=== PATIENT | male | born 1995 | race African-American/Black ===

== ENCOUNTER 2017-02-22 13:22 | Emergency (ER) | payer SELFPAY ==
[~2017-02-22] VITALS: Ht 167.6 cm; Wt 73.5 kg
[~2017-02-22 13:22] MED LIST: PANT40TA3 PO; PROM25TA10 PO
[2017-02-22 13:29] VITALS: BP 140/66
[2017-02-22] MEDS ORDERED: ACET-704 PO (14:10)
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
== END 2017-02-22 14:27 | disposition home or self-care (01) ==
LOC: ER 13:22
DX: S00.93XA Contusion of unspecified part of head, initial encounter (principal); J45.909 Unspecified asthma, uncomplicated; F17.210 Nicotine dependence, cigarettes, uncomplicated; V49.59XA Passenger injured in collision with other motor vehicles in traffic accident, initial encounter; Y93.89 Activity, other specified; Y99.8 Other external cause status; Y92.488 Other paved roadways as the place of occurrence of the external cause
CPT/HCPCS: 99283

== ENCOUNTER 2021-08-17 23:10 | Emergency (ER) | payer SELFPAY ==
[~2021-08-17] VITALS: Ht 172.7 cm; Wt 68.0 kg
[~2021-08-17 23:10] MED LIST changes: +ACET-704 PO; -PANT40TA3 PO; +PANT40TA77 PO
[2021-08-18 03:03] VITALS: BP 128/63
--- NOTE | 2021-08-18 03:53 | PHYS DOC ---
Past Medical History Past Medical History: Asthma, Other Additional Past Medical Histor: "smaller than average heart" Past Surgical History: Other Additional Past Surgical Histo: scrotum Smoking Status: Current Some Day Smoker Alcohol Use: None Drug Use: None General Adult EDM: Chief Complaint: ABDOMINAL PAIN HPI: HPI: Patient is a 26 year old male who present to ER for evaluation of abdominal pain. Patient stated that he had this abdominal pain for a long time. Patient denies any nausea vomiting, no cough, no fever. Patient was to have a doctor documentation that he is disabled because of the chronic abdominal pain. Patient also want to have a prescription for medical marijuana. Patient said he used marijuana every day. Patient denies any cough or fever, no diarrhea. Review of Systems: Review of Systems: Constitutional: Denies fever or chills. [] Eyes: Denies change in visual acuity. [] HENT: Denies nasal congestion or sore throat. [] Respiratory: Denies cough or shortness of breath. [] Cardiovascular: Denies chest pain or edema. [] GI: positive for abdominal pain, no nausea, vomiting, bloody stools or di arrhea. [] : Denies dysuria. [] Musculoskeletal: Denies back pain or joint pain. [] Integument: Denies rash. [] Neurologic: Denies headache, focal weakness or sensory changes. [] Endocrine: Denies polyuria or polydipsia. [] Lymphatic: Denies swollen glands. [] Psychiatric: Denies depression or anxiety. [] Heart Score: C/O Chest Pain: N/A Risk Factors: Risk Factors: DM, Current or recent (<one month) smoker, HTN, HLP, family history of CAD, obesity. Risk Scores: Score 0 - 3: 2.5% MACE over next 6 weeks - Discharge Home Score 4 - 6: 20.3% MACE over next 6 weeks - Admit for Clinical Observation Score 7 - 10: 72.7% MACE over next 6 weeks - Early Invasive Strategies Allergies: Allergies: Allergies Coded Allergies Type Severity Reaction Last Updated Verified No Known Drug Allergies 08/31/15 No Physical Exam: PE: Constitutional: Well developed, well nourished, no acute distress, non-toxic appearance. [] HENT: Normocephalic, atraumatic, bilateral external ears normal, oropharynx moist, no oral exudates, nose normal. [] Eyes: PERRLA, EOMI, conjunctiva normal, no discharge. [] Neck: Normal range of motion, no tenderness, supple, no stridor. [] Cardiovascular:Heart rate regular rhythm, no murmur [] Lungs & Thorax: Bilateral breath sounds clear to auscultation [] Abdomen: Bowel sounds normal, soft, no tenderness, no masses, no pulsatile masses. [] Skin: Warm, dry, no erythema, no rash. [] Back: No tenderness, no CVA tenderness. [] Extremities: No tenderness, no cyanosis, no clubbing, ROM intact, no edema. [] Neurologic: Alert and oriented X 3, normal motor function, normal sensory function, no focal deficits noted. [] Psychologic: Affect normal, judgement normal, mood normal. [] Current Patient Data: Vital Signs: Vital Signs Date Time Temp Pulse Resp B/P (MAP) Pulse Ox O2 Delivery O2 Flow Rate FiO2 08/18/21 03:03 98.3 104 18 128/63 (84) 98 Room Air 98.3 EKG: EKG: [] Radiology/Procedures: Radiology/Procedures: [] Course & Med Decision Making: Course & Med Decision Making Pertinent Labs and Imaging studies reviewed. (See chart for details) Patient somehow decided he doesn't want to be evaluated anymore, he is leaving again medical advice Errol Disclaimer: Errol Disclaimer: This electronic medical record was generated, in whole or in part, using a voice recognition dictation system. Departure Departure Impression: Primary Impression: Abdominal pain Disposition: LEFT AGAINST MEDICAL ADVICE Condition: STABLE Referrals: NO PCP (PCP) Patient Instructions: Discharge Against Medical Advice RAZ TALLEY DO Aug 18, 2021 03:53
== END 2021-08-18 03:37 | disposition left against medical advice (07) ==
LOC: ER 23:10
DX: R10.9 Unspecified abdominal pain (principal); J45.909 Unspecified asthma, uncomplicated; F17.200 Nicotine dependence, unspecified, uncomplicated
CPT/HCPCS: 99281

== ENCOUNTER 2021-08-18 06:14 | Emergency (ER) | payer SELFPAY ==
[~2021-08-18] VITALS: Ht 170.2 cm; Wt 70.0 kg
--- NOTE | 2021-08-18 06:24 | PHYS DOC ---
Past Medical History Past Medical History: Asthma, Other Additional Past Medical Histor: "smaller than average heart" Past Medical History Mental illness Past Surgical History: Other Additional Past Surgical Histo: scrotum Smoking Status: Current Some Day Smoker Alcohol Use: None Drug Use: None General Adult HPI: HPI: Patient is a 26 year old male here who presents with mid abdominal discomfort. He denies nausea, vomiting, diarrhea, constipation. He denies urinary symptoms. He denies chest pain, cough, dyspnea. He denies sore throat, headache, rash. He reports symptoms began several hours ago. He had checked into the ER this morning earlier, decided he does not want any treatment, left AGAINST MEDICAL ADVICE, then he turned around and promptly checked back in to the emergency dep artment. He is homeless. He has been homeless for some time. He reports that he was released from [facility] [facility] yesterday. He admits that he just wants to stay here until 8 AM when the buses start running. He also does report that his feet hurt but does not want a foot exam. No injury or trauma reported. He reports that he has been banned from all of the homeless shelters. He does report that he can stay with his grandmother if he needs to. He takes antipsychotic medications, and he is unsure of his exact diagnosis. He reports that he never "got a label" for his mental illness. He denies any HI or SI symptoms. He denies any concern for his physical or mental wellbeing at this time. Review of Systems: Review of Systems: Constitutional: Denies fever or chills. [] Eyes: Denies change in visual acuity. [] HENT: Denies nasal congestion or sore throat. [] Respiratory: Denies cough or shortness of breath. [] Cardiovascular: Denies chest pain or edema. [] GI: Reports abdominal pain. Denies constipation, diarrhea, nausea vomiting, melena or hematochezia. : Denies urinary symptoms. Musculoskeletal: Denies back pain or joint pain. [] Integument: Denies rash. [] Neurologic: Denies headache, focal weakness or sensory changes. [] Psychiatric: Chronic mood disturbance, psychotic disorder, no acute changes today. Denies SI or HI. Heart Score: C/O Chest Pain: No Risk Factors: Risk Factors: DM, Current or recent (<one month) smoker, HTN, HLP, family history of CAD, obesity. Risk Scores: Score 0 - 3: 2.5% MACE over next 6 weeks - Discharge Home Score 4 - 6: 20.3% MACE over next 6 weeks - Admit for Clinical Observation Score 7 - 10: 72.7% MACE over next 6 weeks - Early Invasive Strategies Allergies: Allergies: Allergies Coded Allergies Type Severity Reaction Last Updated Verified No Known Drug Allergies 08/31/15 No Physical Exam: PE: Constitutional: Well developed, well nourished, no acute distress, non-toxic appearance. [] HENT: Normocephalic, atraumatic, oropharynx patent and clear, mucous membranes are moist. Eyes: Sclera are clear and anicteric. Neck: Normal range of motion, no tenderness, supple, no stridor. Trachea midline. Cardiovascular:Heart rate regular rhythm, +2 radial and +2 posterior tibial pulses bilaterally Lungs & Thorax: Bilateral breath sounds clear to auscultation [] Abdomen: Abdomen soft, nondistended, nontender to palpation, no palpable masses organomegaly, normal bowel sounds, no CVA tenderness, no flank or abdominal ecchymoses, no objective tenderness is elicited. Skin: Warm, dry, no erythema, no rash. [] Back: No tenderness, no CVA tenderness. [] Extremities: No tenderness, no cyanosis, no clubbing, ROM intact, no edema. [] Neurologic: Alert and oriented X 3, ambulatory with a steady gait, speech clear and fluent. Psychologic: Bizarre affect. He is cooperative. EKG: EKG: [] Radiology/Procedures: Radiology/Procedures: [] Course & Med Decision Making: Course & Med Decision Making The patient is given a GI cocktail here. He has a benign, nonsurgical exam, no tenderness elicited. No associated GI symptoms reported. There is no current indication for emergent admission, emergent labs or imaging, based on current clinical presentation. I discussed strict return precautions. He is comfortable with the plan for discharge home. He reports that he may be able to stay with his grandmother. He reports that he has access to other friends that he may contact to help him as well. Return precautions are given. Errol Disclaimer: Errol Disclaimer: This electronic medical record was generated, in whole or in part, using a voice recognition dictation system. Departure Departure Impression: Primary Impression: Epigastric abdominal pain Additional Impression: Homelessness Disposition: HOME / SELF CARE / HOMELESS Condition: STABLE Referrals: NO PCP (PCP) Patient Instructions: Abdominal Pain (Nonspecific) Additional Instructions: Return to the ER for more severe pain, uncontrolled vomiting, dehydration, fever 100.4 or higher, chest pain, shortness of breath, bloody stools, difficulty urinating or other concerns. Please contact your psychiatrist and primary care physician for further follow-up and evaluation and treatment of your chronic conditions. RAFA DANIEL DO Aug 18, 2021 06:23
[2021-08-18 06:42] VITALS: BP 135/71
[2021-08-18] MEDS ORDERED: LIDO:MAALOX 1:1 20 ML SINGLE DOSE. SWSW ONE (07:00)
== END 2021-08-18 07:54 | disposition home or self-care (01) ==
LOC: ER 06:14
DX: R10.13 Epigastric pain (principal); Z95.0 Presence of cardiac pacemaker; J45.909 Unspecified asthma, uncomplicated; F17.200 Nicotine dependence, unspecified, uncomplicated
CPT/HCPCS: 99282

== ENCOUNTER 2022-02-09 07:06 | Emergency (ER) | payer MEDICAID ==
[~2022-02-09] VITALS: Ht 170.2 cm; Wt 72.9 kg
[2022-02-09 07:22] VITALS: BP 121/74
--- NOTE | 2022-02-09 07:45 | ED.ADGEN ---
Past Medical History Past Medical History: Asthma, Other Additional Past Medical Histor: "smaller than average heart" Past Surgical History: Other Additional Past Surgical Histo: TESTICULAR TORSION Smoking Status: Current Every Day Smoker Alcohol Use: Occasionally Drug Use: None General Adult EDM: Chief Complaint: LOWER EXT PAIN HPI: HPI: Patient is a 26-year-old male who arrives ambulatory to the emergency department complaining of bilateral foot pain. Patient states his pain has been ongoing for years. He believes it is related to walking. Patient does admit to being homeless and states he wants an answer today. Despite this the patient denies any history of trauma, systemic disease or rash. He is awake, alert and nontoxic-appearing Review of Systems: Review of Systems: Constitutional: Denies fever or chills. [] Eyes: Denies change in visual acuity. [] HENT: Denies nasal congestion or sore throat. [] Respiratory: Denies cough or shortness of breath. [] Cardiovascular: Denies chest pain or edema. [] GI: Denies abdominal pain, nausea, vomiting, bloody stools or diarrhea. [] : Denies dysuria. [] Musculoskeletal: Denies back pain or joint pain. [] Integument: Denies rash. [] Neurologic: Denies headache, focal weakness or sensory changes. [] Endocrine: Denies polyuria or polydipsia. [] Lymphatic: Denies swollen glands. [] Psychiatric: Denies depression or anxiety. [] Allergies: Allergies: Allergies Coded Allergies Type Severity Reaction Last Updated Verified No Known Drug Allergies 08/31/15 No Physical Exam: PE: Constitutional: Well developed, well nourished, no acute distress, non-toxic appearance. [] HENT: Normocephalic, atraumatic, bilateral external ears normal, oropharynx [address], no oral exudates, nose normal. [] Eyes: PERRLA, EOMI, conjunctiva normal, no discharge. [] Neck: Normal range of motion, no tenderness, supple, no stridor. [] Cardiovascular:Heart rate regular rhythm, no murmur [] Lungs & Thorax: Bilateral breath sounds clear to auscultation [] Abdomen: Bowel sounds normal, soft, no tenderness, no masses, no pulsatile masses. [] Skin: Warm, dry, no erythema, no rash. [] Back: No tenderness, no CVA tenderness. [] Extremities: No tenderness, no cyanosis, no clubbing, ROM intact, no edema. [] Neurologic: Alert and oriented X 3, normal motor function, normal sensory function, no focal deficits noted. [] Psychologic: Affect normal, judgement normal, mood normal. [] Current Patient Data: Vital Signs: Vital Signs Date Time Temp Pulse Resp B/P (MAP) Pulse Ox O2 Delivery O2 Flow Rate FiO2 02/09/22 07:22 98.2 84 16 121/74 (90) 100 Room Air 98.2 EKG: EKG: [] Heart Score: C/O Chest Pain: No Risk Factors: Risk Factors: DM, Current or recent (<one month) smoker, HTN, HLP, family history of CAD, obesity. Risk Scores: Score 0 - 3: 2.5% MACE over next 6 weeks - Discharge Home Score 4 - 6: 20.3% MACE over next 6 weeks - Admit for Clinical Observation Score 7 - 10: 72.7% MACE over next 6 weeks - Early Invasive Strategies Radiology/Procedures: Radiology/Procedures: [] Course & Med Decision Making: Course & Med Decision Making Pertinent Labs and Imaging studies reviewed. (See chart for details) The patient remains awake, alert and in no acute distress. Patient is moving his feet freely and did ambulated here without any difficulty. With his reporte d history do not believe he requires any imaging at this time. Rather I advised that he follow-up with his primary care physician with respect to his illness for further evaluation. The patient's behavior is quite peculiar with respect to his presentation as well. I did ask if he is homicidal or suicidal and he declined this. He does report to being homeless and I asked him if he would like a place to stay and he stated he did not want 1. He does not demonstrate any psychotic features. He will be discharged on his own recognizance [] Dragon Disclaimer: Errol Disclaimer: This electronic medical record was generated, in whole or in part, using a voice recognition dictation system. Departure Departure Impression: Primary Impression: Homelessness Additional Impression: Bilateral foot pain Disposition: HOME / SELF CARE / HOMELESS Condition: STABLE Referrals: NO PCP (PCP) Patient Instructions: Chronic Pain, Medical Screening Exam Scripts Naproxen Sodium (ANAPROX DS) 550 Mg Tablet 1 TAB PO BID for 5 Days, #10 TAB 0 Refills Prov: CODY MEJÍA DO 02/09/22 Problem Qualifiers CODY MEJÍA DO Feb 09, 2022 07:45
[2022-02-09] MEDS ORDERED: NAPR-682 PO (07:53)
== END 2022-02-09 08:10 | disposition home or self-care (01) ==
LOC: ER 07:06
DX: M79.672 Pain in left foot (principal); M79.671 Pain in right foot; J45.909 Unspecified asthma, uncomplicated; F17.200 Nicotine dependence, unspecified, uncomplicated
CPT/HCPCS: 99282